=== PATIENT | male | born 2000 | race Caucasian/White ===

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

== ENCOUNTER → 2020-11-12 | Emergency (ER) | payer OTHER ==
[~2020-11-12] VITALS: Ht 162.6 cm; Wt 52.6 kg
[~2020-11-12] MED LIST: AMOX-CLAV 875-1 EACH PO; INTESTINEX680 M1 PO; KETO10TA2 PO
== END | disposition left against medical advice (07) ==
LOC: ER 14:11 → EMR PED 14:11
DX: Z53.20 Procedure and treatment not carried out because of patient's decision for unspecified reasons (principal)

== ENCOUNTER 2022-01-09 23:11 | Emergency (ER) | payer OTHER ==
[~2022-01-09] VITALS: Ht 170.2 cm; Wt 54.9 kg
== END 2022-01-10 03:44 ==
LOC: ER 23:11
DX: J10.1 Influenza due to other identified influenza virus with other respiratory manifestations (principal); Z20.822 Contact with and (suspected) exposure to COVID-19